=== PATIENT | male | born 1945 | race Caucasian/White ===

== ENCOUNTER → 2017-02-01 | Outpatient (CLI) | payer OTHER ==
[~2017-02-01] MED LIST: AMLODIPINE BESYL5 MG PO; DIOVAN PO; LIPITOR PO; LOPID600 MG PO; LORTAB 7.5-5001 TAB PO; MUSCLE RELAXER; PEPCID PO; PREDNISONE PO; TRIAMCINOLONE CREAM TOP; ULTRAM PO; [UNRECOGNIZED DRUG - OTHER]; [UNRECOGNIZED DRUG - REMARK]
--- NOTE | ~2017-02-01 | CT114 ---
[facility] A Service of [facility] RADIOLOGY TEXT RESULTS PATIENT: ELIZABETH KLINE LOCATION: [facility] : 43 UNIT #: [id number] AGE: [address]: CHRISTINA PARKER SEX: M ORDER DR: [id number] [place] [id number] MR#: [id number] Acc #: [id number] NAME: ELIZABETH KLINE : 1945 SEX: M STUDY DATE/TIME: 02/01/2017 13:30 UNIT: SCT ROOM: STUDY DESCRIPTION: CT Soft Tissue Neck W Cont Ordering Physician: Christina Parker Primary Care Physician: Ezra Johnston M.D. MEDICAL IMAGING REPORT This report is preliminary unless electronic signature is present. EXAM Soft tissue neck CT with contrast 02/01/2017 COMPARISON 09/21/2016. TECHNIQUE Axial contrast-enhanced soft tissue neck CT with multiplanar reformats. This CT exam was performed with one or more of the following radiation dose reduction techniques: automatic exposure control, adjustment of mA and/or kV according to patient size, and iterative reconstruction. NOTE Exam first performed on February 01 but only made available for dictation on 02/09/2017. 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 FINDINGS The tongue lesion on the prior study was difficult to identify with confidence at the right posterior tongue margin. It probably measured about 3 cm in size. On the current study, there may be some residual soft tissue thickening at the posterolateral tongue on the right, perhaps about 1 x 1.4 cm but those measurements are uncertain at best. There is no new soft tissue mass or suspicious adenopathy. The vascular structures remain patent. There is no bone erosion or destruction. The superior mediastinum is normal. The lung apices are unremarkable. [facility] A Service of [facility] RADIOLOGY TEXT RESULTS PATIENT: ELIZABETH KLINE LOCATION: [facility] : 43 UNIT #: [id number] AGE: [address]: CHRISTINA PARKER SEX: M ORDER DR: IMPRESSION 1. No suspicious adenopathy. The primary lesion at the posterior right tongue appears diminished in size since the prior study. Precise measurements are difficult at best, but it probably measured about 3 x 3 cm previously and probably measures about 9 x 14 mm currently, though whether that represents primary mass or simply scarring is unclear at this time. 2. No new abnormality is seen. There is no bony abnormality other than spinal degenerative change. The study is not optimized for evaluation of the cervical vasculature but while there is plaque at the carotid bifurcations, there is no evidence here to suggest any significant internal carotid stenosis by NASCET or other criteria. Dictated by... Joshua Zepeda M.D. THIS IS AN ELECTRONICALLY VERIFIED REPORT Joshua Zepeda M.D. at 02/11/2017 2:18 PM TEV/pcl TD: 02/09/2017 20:39 JOB #: [id number] MEDICAL IMAGING REPORT Page 1 of 1
[2017-02-01 13:20] LABS: POC - CREATININE 1.06 mg/dL (0.64-1.27); POC - GFR >60.0 mL/min (>60)
== END | disposition home or self-care (01) ==
LOC: SCT 12:48
PROVIDERS: Radiology Radiation Oncology
DX: C02.9 Malignant neoplasm of tongue, unspecified (principal); I65.23 Occlusion and stenosis of bilateral carotid arteries
CPT/HCPCS: 70491; 82565; Q9967